=== PATIENT | female | born 1960 | race African-American/Black ===

== ENCOUNTER 2024-12-30 10:10 | Emergency (ER) | payer MEDICAID ==
[~2024-12-30] VITALS: Ht 167.6 cm; Wt 95.2 kg
[2024-12-30 10:27] VITALS: O2SAT 100
[2024-12-30] MEDS: IBUPROFEN 600MG TABLET PO ONE (11:06)
[2024-12-30 11:54] VITALS: BP 162/49; PULSE 74; RESP 20; TEMP 36.9; O2SAT 100
== END 2024-12-30 11:58 | disposition home or self-care (01) ==
LOC: ER 10:10
DX: M25.531 Pain in right wrist (principal); M79.641 Pain in right hand; Z90.49 Acquired absence of other specified parts of digestive tract; Z98.890 Other specified postprocedural states; W01.0XXA Fall on same level from slipping, tripping and stumbling without subsequent striking against object, initial encounter; Y93.89 Activity, other specified; Y92.89 Other specified places as the place of occurrence of the external cause; Y99.8 Other external cause status
CPT/HCPCS: 73110; 73130; 99284